=== PATIENT | female | born 1995 | race Two or more races ===

== ENCOUNTER 2017-01-28 08:05 | Inpatient (IN) | payer OTHER, MEDICAID ==
[~2017-01-28] VITALS: Ht 147.3 cm; Wt 69.0 kg
[2017-01-28 08:15] VITALS: BP 106/60
[2017-01-28] MEDS ORDERED: PREN-3 PO (08:19)
[2017-01-28] MEDS ORDERED: OXYTOCIN 30U/ 0.9% NaCL 500ML 500 ML IV ONE (10:11)
[2017-01-28 10:25] LABS: HEMATOCRIT 32.3 % (34.6-47.8); HEMOGLOBIN 10.7 g/dL (11.7-16.4); WHITE BLOOD COUNT 15.6 x10^3/uL (3.4-10)
[2017-01-28] MEDS: LACTATED RINGERS 1,000 ML IV SCH ×5 (10:27→19:48)
[2017-01-28] MEDS ORDERED: ONDANSETRON 2MG/ML, 2ML IVPush PRN (10:30)
[2017-01-28] MEDS ORDERED: TERBUTALINE 1 MG/ML, 1ML IVPush PRN ×2 (10:30)
[2017-01-28] MEDS ORDERED: TERBUTALINE 1 MG/ML, 1ML SQ PRN (10:30)
[2017-01-28] MEDS ORDERED: FENTANYL PF 100 MCG/2ML IVPush PRN (10:30)
[2017-01-28] MEDS ORDERED: FENTANYL PF 100 MCG/2ML IV PRN (10:30)
[2017-01-28] MEDS ORDERED: NEWBORN KIT ONE (10:34)
[2017-01-28] MEDS ORDERED: FENTANYL/BUPIV./NS/PF 250 ML EPIDCONT SCH (11:48)
[2017-01-28] MEDS ORDERED: FENTANYL/BUPIV./NS/PF 250 ML EPIDCONT ONE ×2 (11:51→11:52)
[2017-01-28] MEDS ORDERED: BUPIVACAINE/PF 0.25% ONE (11:51)
[2017-01-28] MEDS ORDERED: BUPIVACAINE 0.25% ONE (11:52)
[2017-01-28] MEDS ORDERED: LACTATED RINGERS 1,000 ML IVBOLUS PRN (12:00)
[2017-01-28] MEDS ORDERED: EPHEDRINE 50 MG/ML, 1ML IVPush PRN (12:00)
[2017-01-28] MEDS ORDERED: NALOXONE 0.4 MG/ML, 1ML IVPush PRN (12:00)
[2017-01-28] MEDS ORDERED: MISOPROSTOL 200 MCG TABLET ONE (14:11)
[2017-01-28] MEDS ORDERED: LIDOCAINE 1%, 20ML ONE (14:11)
[2017-01-28] MEDS ORDERED: OXYTOCIN 30U/ 0.9% NaCL 500ML 500 ML ONE (14:11)
[2017-01-28] MEDS ORDERED: ACETAMINOPHEN 325 MG TABLET ONE (18:59)
[2017-01-28] MEDS ORDERED: AMPICILLIN 2 GM in SODIUM CHLORIDE 0.9% 100 ML IV SCH (19:00)
[2017-01-28] MEDS ORDERED: ACETAMINOPHEN 325 MG TABLET PO SCH (19:00)
[2017-01-28] MEDS ORDERED: GENTAMICIN 140 MG in SODIUM CHLORIDE 0.9% 50 ML IV ONE (19:30)
[2017-01-28] MEDS: OXYTOCIN 30U/ 0.9% NaCL 500ML 500 ML IV SCH (21:43)
[2017-01-28] MEDS ORDERED: CALCIUM CARBONATE 500 MG TAB.CHEW PO PRN (22:00)
[2017-01-28] MEDS ORDERED: MISOPROSTOL 200 MCG TABLET PR PRN (22:00)
[2017-01-28] MEDS ORDERED: HYDROcodone/APAP 5/325 TABLET PO PRN ×2 (22:00)
[2017-01-28] MEDS ORDERED: ONDANSETRON 2MG/ML, 2ML IV PRN (22:00)
[2017-01-28] MEDS ORDERED: GENTAMICIN 0 MG in SODIUM CHLORIDE 0.9% 100 ML IV SCH (22:00)
[2017-01-28] MEDS ORDERED: PHARMACOKINETIC CONSULTATION MC ONE (22:30)
[2017-01-29 00:10] VITALS: BP 100/58
[2017-01-29] MEDS: AMPICILLIN 2 GM in SODIUM CHLORIDE 0.9% 100 ML IV SCH ×4 (01:27→21:09)
[2017-01-29] MEDS: GENTAMICIN 140 MG in SODIUM CHLORIDE 0.9% 50 ML IV SCH ×3 (03:43→19:35)
[2017-01-29] MEDS: LACTATED RINGERS 1,000 ML IV SCH ×3 (03:48→11:48)
[2017-01-29 04:40] VITALS: BP 95/56
[2017-01-29 06:05] LABS: HEMATOCRIT 31.2 % (34.6-47.8); HEMOGLOBIN 10.4 g/dL (11.7-16.4); WHITE BLOOD COUNT 24.5 x10^3/uL (3.4-10)
[2017-01-29 06:22] LABS: DIFF TOTAL CELLS COUNTED 100 CELL DIFF
[2017-01-29 06:24] LABS: VERIFY COUNTS? YES
[2017-01-29 06:25] LABS: POLYCHROMASIA 1+
[2017-01-29 06:26] LABS: GIANT PLATELETS 1+; LARGE PLATELETS 1+
[2017-01-29] MEDS: OXYTOCIN 30U/ 0.9% NaCL 500ML 500 ML IV SCH ×2 (07:43→17:05)
[2017-01-29] MEDS ORDERED: PRENATAL VIT/IRON/FA 1 EACH TABLET ONE (07:49)
[2017-01-29] MEDS: PRENATAL VIT/IRON/FA 1 EACH TABLET PO SCH (07:56)
[2017-01-29] MEDS: DOCUSATE 100 MG CAPSULE PO PRN (07:57)
[2017-01-29 08:15] VITALS: BP 95/55
[2017-01-29] MEDS: IBUPROFEN 600 MG TABLET PO PRN ×2 (11:51→18:39)
[2017-01-29 12:00] VITALS: BP 94/61
[2017-01-29 19:45] VITALS: BP 81/47
[2017-01-29] MEDS ORDERED: SODIUM CHLORIDE 0.9% 1,000ML IVBOLUS ONE (20:00)
[2017-01-30 00:50] VITALS: BP 92/55
[2017-01-30] MEDS: OXYTOCIN 30U/ 0.9% NaCL 500ML 500 ML IV SCH (03:43)
[2017-01-30 06:16] LABS: HEMATOCRIT 33.3 % (34.6-47.8); HEMOGLOBIN 11.1 g/dL (11.7-16.4); WHITE BLOOD COUNT 19.8 x10^3/uL (3.4-10)
[2017-01-30] MEDS: PRENATAL VIT/IRON/FA 1 EACH TABLET PO SCH (07:50)
[2017-01-30] MEDS: DOCUSATE 100 MG CAPSULE PO PRN (07:50)
[2017-01-30] MEDS: IBUPROFEN 600 MG TABLET PO PRN (07:50)
[2017-01-30 08:00] VITALS: BP 97/64
[2017-01-30 12:00] VITALS: BP 98/64
[2017-01-30] MEDS ORDERED: HYDR-3240 PO (14:21)
[2017-01-30] MEDS ORDERED: IBUP-1223 PO (14:22)
[2017-01-30 16:00] VITALS: BP 98/62
== END 2017-01-30 18:10 | disposition home or self-care (01) | DRG 775 ==
LOC: LDOP 08:05 → LDIP 10:20 → 2NW 23:48
PROVIDERS: ADMIT Obstetrics & Gynecology; ATTEND Obstetrics & Gynecology
PROC: 10E0XZZ Delivery of Products of Conception, External Approach (ICD-10-PCS; principal; 2017-01-28)
PROC: 0HQ9XZZ Repair Perineum Skin, External Approach (ICD-10-PCS; 2017-01-28)
PROC: 00HU33Z Insertion of Infusion Device into Spinal Canal, Percutaneous Approach (ICD-10-PCS; 2017-01-28)
PROC: 3E0R3CZ (ICD-10-PCS; 2017-01-28)
DX: O41.1230 Chorioamnionitis, third trimester, not applicable or unspecified (principal); J45.909 Unspecified asthma, uncomplicated; O70.0 First degree perineal laceration during delivery; Z3A.39 39 weeks gestation of pregnancy; Z37.0 Single live birth; O99.52 Diseases of the respiratory system complicating childbirth; R33.9 Retention of urine, unspecified; O75.89 Other specified complications of labor and delivery
CPT/HCPCS: 36415; 82803; 85025; 86850; 86900; 87070; 87205; 87491; 87591; 87808; J0290; J3490; J1580; J2590; J3010; J7030; J7120